=== PATIENT | female | born 1995 | race Caucasian/White ===

== ENCOUNTER 2018-07-07 21:15 | Emergency (ER) | payer OTHER ==
[~2018-07-07] VITALS: Ht 152.4 cm; Wt 88.9 kg
[2018-07-07 21:48] VITALS: BP 153/79; Ht 152.4 cm; Wt 88.9 kg
== END 2018-07-07 23:43 | disposition home or self-care (01) ==
LOC: ED 21:15
DX: L08.9 Local infection of the skin and subcutaneous tissue, unspecified (principal); R22.0 Localized swelling, mass and lump, head

== ENCOUNTER 2020-02-10 12:26 | Emergency (ER) | payer OTHER ==
[~2020-02-10] VITALS: Ht 160 cm; Wt 92.1 kg
[2020-02-10 13:46] VITALS: Ht 160 cm; Wt 92.1 kg
[2020-02-10 16:55] VITALS: BP 110/76
== END 2020-02-10 16:55 | disposition home or self-care (01) ==
LOC: ED 12:26
DX: S16.1XXA Strain of muscle, fascia and tendon at neck level, initial encounter (principal); Z90.89 Acquired absence of other organs; V49.9XXA Car occupant (driver) (passenger) injured in unspecified traffic accident, initial encounter; Y93.89 Activity, other specified; Y92.89 Other specified places as the place of occurrence of the external cause; Y99.8 Other external cause status